=== PATIENT | male | born 1950 | race Caucasian/White ===

== ENCOUNTER 2019-07-19 14:45 | Outpatient (CLI) | payer MEDICARE, SELFPAY ==
--- NOTE | 2019-07-19 14:50 | ECG_ITS ---
Measurements Intervals [place] Rate: 85 P: 31 NJ: 124 QRS: -2 QRSD: 106 T: 21 QT: 412 QTc: 492 Interpretive Statements SINUS OR ECTOPIC ATRIAL RHYTHM BASELINE ARTIFACT- I, II, III, AVR, AVL, AVF, V1 BORDERLINE ECG Electronically Signed On 07-19-2019 16:27:06 [employer] by Cr Soliman D.O.
[2019-07-19 15:27] LABS: Blood Urea Nitrogen 9 mg/dL (9-20); Calcium 7.7 mg/dL (8.4-10.2); Carbon Dioxide 24 mmol/L (22-30); Chloride 98 mmol/L (98-107); Estimated Glomerular Filt Rate > 60; Glucose 191 mg/dL (75-110); Potassium 4.1 mmol/L (3.4-5.0); Sodium 135 mmol/L (137-145)
== END 2019-07-19 14:46 | disposition home or self-care (01) ==
LOC: ANHSURGERY 14:50
PROVIDERS: Anesthesiology; PCP Internal Medicine; Visit Provider Urology
DX: Z01.818 Encounter for other preprocedural examination (principal); E78.00 Pure hypercholesterolemia, unspecified; E11.9 Type 2 diabetes mellitus without complications
CPT/HCPCS: 36415; 80048; 93005

== ENCOUNTER 2019-07-26 00:31 | Day surgery (SDC) | payer MEDICARE, SELFPAY ==
[2019-07-18 15:33] VITALS: BMI 25.1
--- NOTE | 2019-07-26 06:33 | WPDHPUPDATE1 ---
History and Physical Update Update Date/Time: 07/26/19 06:33 History and Physical has been reviewed, including an updated exam of the patient. There are NO changes in the patient's condition. Risks, benefits, and alternatives have been discussed and questions answered. Patient agrees to proceed with procedure.
--- NOTE | 2019-07-26 08:15 | WPDANESEPPF ---
Anes - Initial Pre Proc Eval Procedure: Operation Date: 07/26/19 12:45 Proposed Procedures p Urolift - Boaz Gonzalez MD Date/Time: 07/26/19 08:15 Surgeon: Boaz Gonzalez MD Pre Op Diagnosis: BPH Patient Data Age: 68 Gender: M Height: 1.8 m Weight: 81.65 kg Allergies Allergy/AdvReac Type Severity Reaction Status Date / Time No Known Allergies Allergy Unverified 07/26/19 11:05 Home Medications Medication Instructions Recorded Confirmed Type aspirin 81 mg PO DAILY 07/18/19 07/26/19 History atorvastatin 10 mg PO DAILY 07/18/19 07/26/19 History bimatoprost 1 drp OPHTHALMIC (EYE) QPM 07/18/19 07/26/19 History citalopram 20 mg PO DAILY 07/18/19 07/26/19 History dapagliflozin [Farxiga] 40 mg PO DAILY 07/18/19 07/26/19 History finasteride 5 mg PO DAILY 07/18/19 07/26/19 History insulin degludec [Tresiba U-100 26 unit SUBCUT DAILY 07/18/19 07/26/19 History Insulin] metformin 1,000 mg PO BID 07/18/19 07/26/19 History multivitamin [Multiple Vitamins] 1 tablet PO DAILY 07/18/19 07/26/19 History sucralfate 1 g PO QID 07/18/19 07/26/19 History tamsulosin 0.4 mg PO DAILY 07/18/19 07/26/19 History Patient hx anesthesia problems: none Family hx anesthesia problems: none [facility] Past Medical History Medical History (Updated 07/26/19 @ 08:17 by Garth Agrawal MD) BPH (benign prostatic hyperplasia) Cancer BLADDER Depression Diabetes Fatty liver Gastroesophageal reflux disease Glaucoma Hypercholesterolemia MEMO (obstructive sleep apnea) Social History Social History Gender identity (if verbalized by the patient): Male Anes - Eval Final PreProcedure Day of Procedure 07/26/19 08:15 Patient weight: normal Heart: regular rate and rhythm Lungs: clear to auscultation and normal air movement Airway: Mallampati scale class II Neurological: alert and oriented Last oral intake: >/= 8 hours ASA classification: III Emergent: no Anesthetic plan: proceed Anesthesia type and monitoring: general GIVS and LMA Informed Consent: The patient's anesthetic plan and its attendant risks and benefits were discussed with the patient/family/POA. Questions were solicited and answers provided to the satisfaction of the patient/family/POA.
[2019-07-26 11:13] VITALS: BP 108/57; PULSE 89; RESP 18; TEMP 36.7
[2019-07-26 11:24] LABS: Glucose Point of Care 80 (65-105)
[2019-07-26] MEDS: LACTATED RINGERS 1,000 ML 30 ML IV CONT (11:25)
[2019-07-26] MEDS: ceFAZolin 2 GM/D5W 50 ML 2 GM/50 ML BAG IVPB (12:08)
[2019-07-26] MEDS: LIDOCAINE HCL 2% GEL UROJET 10 ML PKG MUCOUS MEM (12:27)
--- NOTE | 2019-07-26 12:34 | P.OP_ITS ---
Procedure Note - Detailed Date of procedure: 07/26/19 Pre-op diagnosis: BPH Post-op diagnosis: same Procedure performed: Urolift Description of procedure: The patient was prepped and draped in a routine fashion after the uneventful induction of a general LMA anesthetic. A 20F cystoscope was inserted into the bladder. The cystoscopy bridge was replaced with a UroLift delivery device. The first treatment site was the patient's right side approximately 1.5cm distal to the bladder neck. The distal tip of the delivery device was then angled laterally approximately 20 degrees at this position to compress the lateral lobe. The trigger was pulled, thereby deploying a needle containing the implant through the prostate. The needle was then retracted, allowing one end of the implant to be delivered to the capsular surface of the prostate. The implant was then tensioned to assure capsular seating and removal of slack monofilament. The device was then angled back toward midline and slowly advanced proximally (typically 3 to 4 mm) until cystoscopic verification of the monofilament being centered in the delivery bay. The urethral end piece was then affixed to the monofilament thereby tailoring the size of the implant. Excess filament was then severed. The delivery device was then re-advanced into the bladder. The delivery device was then replaced with cystoscope and bridge and the implant location and opening effect was conf irmed cystoscopically. The same procedure was then repeated on the left side, and two additional implants were delivered just proximal to the verumontanum, again one on right and one on left side of the prostate, following the same technique. Therefore, a total of 4 implants were delivered. A final cystoscopy was conducted first to inspect the location and state of each implant and second, to confirm the presence of a continuous anterior channel was present through the prostatic urethra with irrigation flow turned off. The bladder was then filled with 150 cc irrigation fluid to assist the patient in void trial after the procedure, and all instruments were removed. At this point the cystoscope was removed and the patient was taken to the PACU in good condition. Anesthesia: MAC Surgeon: Boaz Gonzalez MD Estimated blood loss (mL): 0 Drains: No Packing: No Pathology: none sent Complications: No immediate complications Condition: stable Disposition: PACU
[2019-07-26 12:39] VITALS: BP 92/59; PULSE 86; RESP 16; O2SAT 92
[2019-07-26 13:02] LABS: Glucose Point of Care 86 (65-105)
[2019-07-26 13:05] VITALS: BP 107/65; PULSE 87; RESP 14
[2019-07-26 13:30] VITALS: BP 103/67; PULSE 75; RESP 14
--- NOTE | 2019-07-26 13:49 | SUR.PHASEII ---
1320 VOIDED PER URINAL ALSO INCONTINENT.
== END 2019-07-26 13:42 | disposition home or self-care (01) ==
PROVIDERS: Visit Provider Urology
PROC: 0T7D8DZ Dilation of Urethra with Intraluminal Device, Via Natural or Artificial Opening Endoscopic (ICD-10-PCS; CPT 52441; principal; 2019-07-26 12:45)
DX: N40.1 Benign prostatic hyperplasia with lower urinary tract symptoms (principal); N13.8 Other obstructive and reflux uropathy; E11.9 Type 2 diabetes mellitus without complications; E78.00 Pure hypercholesterolemia, unspecified; G47.33 Obstructive sleep apnea (adult) (pediatric); K76.0 Fatty (change of) liver, not elsewhere classified; H40.9 Unspecified glaucoma; K21.9 Gastro-esophageal reflux disease without esophagitis; F32.9 Major depressive disorder, single episode, unspecified; Z85.51 Personal history of malignant neoplasm of bladder; Z79.82 Long term (current) use of aspirin; Z79.4 Long term (current) use of insulin; Z79.84 Long term (current) use of oral hypoglycemic drugs
CPT/HCPCS: C9740; A9270; J0690; J1100; J2250; J2405; J2704; J3010; J7120; L8699